=== PATIENT | female | born 1995 | race Caucasian/White ===

== ENCOUNTER 2018-01-02 21:52 | Emergency (ER) | payer OTHER ==
[2018-01-03] MEDS: SOD CHLORIDE 0.9% 1,000 ML IV (00:24)
[2018-01-03] MEDS: HYDROCODONE/APAP (5/325) TAB PO (00:25)
[2018-01-03 00:28] LABS: ADD MAN DIFF? NO
[2018-01-03 00:31] LABS: WHITE BLOOD COUNT 13.5 10^3/ul (4.8-10.8)
[2018-01-03 00:31] LABS: BASOPHILS % 0.3 % (0.0-2.0); EOSINOPHILS # 0.1 10^3/ul (0.0-0.5); EOSINOPHILS % 0.8 % (0.0-7.0); HEMATOCRIT 37.5 % (37.0-47.0); HEMOGLOBIN 12.7 g/dl (12.0-16.0); LYMPHOCYTES # 2.4 10^3/ul (0.8-2.9); MEAN CORPUSCULAR HEMOGLOBIN 29.5 pg (29.0-33.0); MEAN CORPUSCULAR HGB CONC 33.9 g/dl (32.0-37.0); MEAN CORPUSCULAR VOLUME 87.2 fl (82.0-101.0); MEAN PLATELET VOLUME 9.9 fl (7.4-10.4); MONOCYTE # 0.5 10^3/ul (0.3-0.9); MONOCYTES % 3.9 % (0.0-11.0); NEUTROPHIL # 10.3 10^3/ul (1.6-7.5); NEUTROPHILS % 76.6 % (39.0-77.0); PLATELET COUNT 223 10^3/UL (140-415); RED CELL DISTRIBUTION WIDTH 13.3 % (11.5-14.5)
[2018-01-03 03:01] LABS: UR COLOR RED (YELLOW)
[2018-01-03 03:02] LABS: ADD UMIC YES; UR ASCORBIC ACID NEGATIVE (NEGATIVE); UR BILIRUBIN (Dip) NEGATIVE (NEGATIVE); UR BLOOD (Dip) 3+ mg/dL (NEGATIVE); UR CLARITY CLOUDY (CLEAR); UR GLUCOSE (Dip) NEGATIVE (NEGATIVE); UR KETONES (Dip) NEGATIVE (NEGATIVE); UR LEUKOCYTE ESTERASE (Dip) 1+ Leu/ul (NEGATIVE); UR NITRITE (Dip) NEGATIVE (NEGATIVE); UR RBC > 182 /HPF (0-5); UR SPECIFIC GRAVITY (Dip) 1.016 (1.003-1.030); UR SQUAMOUS EPITHELIAL CELL FEW /HPF (FEW); UR TOTAL PROTEIN (Dip) 2+ mg/dl (NEGATIVE); UR UROBILINOGEN (Dip) NEGATIVE (NEGATIVE); UR WBC 44 /HPF (0-5)
== END 2018-01-03 03:34 | disposition home or self-care (01) ==
LOC: FTE 21:52
DX: O26.891 Other specified pregnancy related conditions, first trimester (principal); R10.2 Pelvic and perineal pain; O20.9 Hemorrhage in early pregnancy, unspecified; Z87.891 Personal history of nicotine dependence
CPT/HCPCS: 36415; 76801; 76817; 81001; 84702; 85025; 86900; 86901; 99285-25

== ENCOUNTER 2018-01-04 12:21 | Inpatient (IN) | payer OTHER ==
[2018-01-04] MEDS: ACETAMINOPHEN 325 MG TAB PO (14:55)
[2018-01-04] MEDS: SODIUM CHLORIDE 0.9% 1L BAG IV* (14:55)
[2018-01-04 15:00] LABS: ADD MAN DIFF? NO
[2018-01-04 15:03] LABS: WHITE BLOOD COUNT 13.1 10^3/ul (4.8-10.8)
[2018-01-04 15:03] LABS: ABNORMAL IP MESSAGE 1; BASOPHILS % 0.2 % (0.0-2.0); HEMATOCRIT 34.4 % (37.0-47.0); LYMPHOCYTES # 0.4 10^3/ul (0.8-2.9); LYMPHOCYTES % 3.3 % (15.0-51.0); MEAN CORPUSCULAR HEMOGLOBIN 29.9 pg (29.0-33.0); MEAN CORPUSCULAR HGB CONC 34.9 g/dl (32.0-37.0); MEAN CORPUSCULAR VOLUME 85.6 fl (82.0-101.0); MONOCYTE # 0.7 10^3/ul (0.3-0.9); NEUTROPHIL # 11.9 10^3/ul (1.6-7.5); NEUTROPHILS % 90.7 % (39.0-77.0); PLATELET COUNT 156 10^3/UL (140-415); RED BLOOD COUNT 4.02 10^6/ul (4.20-5.40); RED CELL DISTRIBUTION WIDTH 12.8 % (11.5-14.5)
[2018-01-04 15:13] LABS: POSITIVE DIFF @See below
[2018-01-04 15:27] LABS: INR 1.17; PROTIME 15.1 Sec (11.9-14.9); PT RATIO 1.2
[2018-01-04 15:28] LABS: PARTIAL THROMBOPLASTIN TIME 29.9 Sec (25.0-35.0)
[2018-01-04 15:31] LABS: ALANINE AMINOTRANSFERASE 47 IU/L (13-69); ALBUMIN 4.8 g/dl (3.3-4.9); ALBUMIN/GLOBULIN RATIO 1.45; ALKALINE PHOSPHATASE 62 IU/L (42-121); ANION GAP 21 (8-16); ASPARTATE AMINO TRANSFERASE 56 IU/L (15-46); BILIRUBIN,INDIRECT 0.6 mg/dl (0-1.1); BILIRUBIN,TOTAL 0.6 mg/dl (0.2-1.3); BLOOD UREA NITROGEN 6 mg/dl (7-20); CARBON DIOXIDE 23 mmol/L (21-31); CHLORIDE 95 mmol/L (97-110); GLUCOSE 135 mg/dl (70-220); LIPASE 19 U/L (23-300); POTASSIUM 3.7 mmol/L (3.5-5.1); SODIUM 135 mmol/L (135-144); TOTAL PROTEIN 8.1 g/dl (6.1-8.1)
[2018-01-04 15:34] LABS: LACTIC ACID 2.1 mmol/L (0.5-2.0)
[2018-01-04 15:42] LABS: TROPONIN-I < 0.012 ng/ml (0.00-0.12)
[2018-01-04] MEDS: PIPER-TAZO 3.375 GM IV (PMX) 100 ML IVPB ×2 (16:13→22:03)
[2018-01-04 16:22] LABS: ADD UMIC YES; UR ASCORBIC ACID NEGATIVE (NEGATIVE); UR BACTERIA FEW /HPF (NONE SEEN); UR BILIRUBIN (Dip) NEGATIVE (NEGATIVE); UR BLOOD (Dip) 2+ mg/dL (NEGATIVE); UR CLARITY CLEAR (CLEAR); UR COLOR RED (YELLOW); UR GLUCOSE (Dip) 1+ mg/dL (NEGATIVE); UR KETONES (Dip) NEGATIVE (NEGATIVE); UR LEUKOCYTE ESTERASE (Dip) 2+ Leu/ul (NEGATIVE); UR NITRITE (Dip) NEGATIVE (NEGATIVE); UR RBC > 182 /HPF (0-5); UR SPECIFIC GRAVITY (Dip) 1.005 (1.003-1.030); UR SQUAMOUS EPITHELIAL CELL FEW /HPF (FEW); UR TOTAL PROTEIN (Dip) 2+ mg/dl (NEGATIVE); UR UROBILINOGEN (Dip) NEGATIVE (NEGATIVE); UR WBC 78 /HPF (0-5)
[2018-01-04] MEDS ORDERED: ACETAMINOPHEN 325 MG TAB PO (16:30)
[2018-01-04] MEDS ORDERED: BISACODYL 10 MG SUPP PR (16:30)
[2018-01-04] MEDS ORDERED: NACL 0.9% 3 ML SYG IV (16:30)
[2018-01-04] MEDS ORDERED: HYDROCODONE/APAP (5/325) TAB PO (16:30)
[2018-01-04] MEDS ORDERED: SOD CHLORIDE 0.9% 1,000 ML IV (16:30)
[2018-01-04] MEDS ORDERED: morphine 2 MG INJ IV (16:30)
[2018-01-04] MEDS ORDERED: BISACODYL (EC) 5 MG TAB PO (16:30)
[2018-01-04] MEDS ORDERED: MAGNESIUM HYDROXIDE 30ML CUP PO (16:30)
[2018-01-04] MEDS ORDERED: DOCUSATE SODIUM 100 MG CAP PO (16:30)
[2018-01-04] MEDS: VANCOMYCIN 1 GM (PMX) 250 ML IVPB (17:29)
[2018-01-04] MEDS ORDERED: ENOXAPARIN 40 MG/0.4 ML SYG SC (18:00)
[2018-01-04 18:38] LABS: LACTIC ACID 1.1 mmol/L (0.5-2.0)
[2018-01-04] MEDS ORDERED: CEFTRIAXONE 1 GM/50 ML (PMX) 50 ML IVPB (21:00)
[2018-01-04] MEDS: ONDANSETRON 4 MG INJ IV (21:25)
[2018-01-05] MEDS: PIPER-TAZO 3.375 GM IV (PMX) 100 ML IVPB ×3 (05:42→22:52)
[2018-01-05 05:47] LABS: ADD MAN DIFF? NO
[2018-01-05 05:51] LABS: ABNORMAL IP MESSAGE 1; BASOPHILS % 0.4 % (0.0-2.0); HEMATOCRIT 25.9 % (37.0-47.0); HEMOGLOBIN 8.9 g/dl (12.0-16.0); LYMPHOCYTES # 0.6 10^3/ul (0.8-2.9); LYMPHOCYTES % 12.3 % (15.0-51.0); MEAN CORPUSCULAR HGB CONC 34.4 g/dl (32.0-37.0); MEAN CORPUSCULAR VOLUME 87.2 fl (82.0-101.0); MEAN PLATELET VOLUME 10.5 fl (7.4-10.4); MONOCYTE # 0.2 10^3/ul (0.3-0.9); MONOCYTES % 4.8 % (0.0-11.0); NEUTROPHIL # 3.9 10^3/ul (1.6-7.5); NEUTROPHILS % 81.2 % (39.0-77.0); PLATELET COUNT 122 10^3/UL (140-415); RED BLOOD COUNT 2.97 10^6/ul (4.20-5.40); RED CELL DISTRIBUTION WIDTH 13.1 % (11.5-14.5)
[2018-01-05 05:51] LABS: WHITE BLOOD COUNT 4.8 10^3/ul (4.8-10.8)
[2018-01-05 06:01] LABS: POSITIVE DIFF @See below
[2018-01-05 06:31] LABS: ANION GAP 14 (8-16); BLOOD UREA NITROGEN 5 mg/dl (7-20); CALCIUM 7.7 mg/dl (8.4-10.2); CARBON DIOXIDE 25 mmol/L (21-31); CHLORIDE 106 mmol/L (97-110); CREATININE 0.59 mg/dl (0.44-1.00); GLUCOSE 97 mg/dl (70-220); MAGNESIUM 1.8 mg/dl (1.7-2.5); PHOSPHORUS 2.8 mg/dl (2.5-4.9); POTASSIUM 3.9 mmol/L (3.5-5.1); SODIUM 141 mmol/L (135-144)
[2018-01-05 06:33] LABS: T3 UPTAKE 35.8 % (23.5-40.5); T4 (THYROXINE) 5.6 ug/dl (5.5-11.0)
[2018-01-05] MEDS: LACTATED RINGER'S 1,000 ML IV ×3 (08:42→12:18)
[2018-01-05] MEDS ORDERED: CEFAZOLIN 1 GM INJ (09:38)
[2018-01-05] MEDS ORDERED: GLYCOPYRROLATE 0.4 MG INJ (09:38)
[2018-01-05] MEDS ORDERED: PROPOFOL 20 ML (09:38)
[2018-01-05] MEDS ORDERED: ROCURONIUM 50 MG INJ (09:38)
[2018-01-05] MEDS ORDERED: NEOSTIGMINE 3 MG/3 ML SYRINGE (09:38)
[2018-01-05] MEDS ORDERED: MIDAZOLAM 1 MG/ML 2 ML INJ (09:39)
[2018-01-05] MEDS ORDERED: FENTAnyl 50 MCG/ML VIAL ×2 (09:39→10:34)
[2018-01-05] MEDS ORDERED: ONDANSETRON 4 MG INJ (09:40)
[2018-01-05] MEDS ORDERED: DEXAMETHASONE 4 MG/ML 1 ML INJ (09:40)
[2018-01-05] MEDS ORDERED: SUGAMMADEX SODIUM 200 MG/2 ML VIAL IV (10:03)
[2018-01-05] MEDS ORDERED: MIDAZOLAM 1 MG/ML 2 ML INJ IV (10:30)
[2018-01-05] MEDS ORDERED: NACL 0.9% 3 ML SYG IV (10:30)
[2018-01-05] MEDS ORDERED: FENTAnyl 50 MCG/ML VIAL IV ×2 (10:30)
[2018-01-05] MEDS ORDERED: IBUPROFEN 600 MG TAB PO (10:30)
[2018-01-05] MEDS ORDERED: hydrALAzine 20 MG INJ IV (10:30)
[2018-01-05] MEDS ORDERED: DOCUSATE SODIUM 100 MG CAP PO (10:30)
[2018-01-05] MEDS ORDERED: ONDANSETRON 4 MG INJ IV ×2 (10:30)
[2018-01-05] MEDS ORDERED: HYDROmorphONE (0.2 MG/ML) 10ML SYG IV ×3 (10:30)
[2018-01-05] MEDS ORDERED: EPHEDrine SULFATE 50 MG/5 ML SYG IV (10:30)
[2018-01-05] MEDS ORDERED: MEPERIDINE 25 MG INJ IV (10:30)
[2018-01-05] MEDS ORDERED: IPRATROPIUM (NEB) 0.5 MG/2.5 ML AMP HHN (10:30)
[2018-01-05] MEDS ORDERED: ALBUTEROL 0.083% (NEB) 2.5 MG/3 ML AMP HHN (10:30)
[2018-01-05] MEDS ORDERED: TRIMETHOBENZAMIDE 100 MG/ML VIAL IM (10:30)
[2018-01-05] MEDS ORDERED: OXYCODONE/ACETAMINOPHEN (5/325) TAB PO ×2 (10:30)
[2018-01-05] MEDS ORDERED: LABETALOL HCL 20MG INJ IV (10:30)
[2018-01-05] MEDS ORDERED: DIPHENHYDRAMINE 50 MG INJ IV (10:30)
[2018-01-05] MEDS: FENTAnyl 50 MCG/ML VIAL IV (10:39)
[2018-01-05] MEDS ORDERED: VANCOMYCIN IV PER PHARMACY XX (11:00)
[2018-01-05] MEDS ORDERED: CEPASTAT LOZENGE (12:16)
[2018-01-05] MEDS: CEPASTAT LOZENGE MT (12:19)
[2018-01-05] MEDS: VANCOMYCIN 1 GM 250 ML IVPB ×2 (12:19→20:52)
[2018-01-06] MEDS: ZOLPIDEM 5 MG TAB PO (01:59)
[2018-01-06] MEDS: LACTATED RINGER'S 1,000 ML IV ×2 (03:14→12:41)
[2018-01-06] MEDS: VANCOMYCIN 1 GM 250 ML IVPB ×2 (04:07→12:41)
[2018-01-06 05:15] LABS: ADD MAN DIFF? NO
[2018-01-06 05:24] LABS: WHITE BLOOD COUNT 5.6 10^3/ul (4.8-10.8)
[2018-01-06 05:24] LABS: BASOPHILS % 0.2 % (0.0-2.0); EOSINOPHILS % 0.2 % (0.0-7.0); HEMATOCRIT 23.8 % (37.0-47.0); HEMOGLOBIN 8.1 g/dl (12.0-16.0); LYMPHOCYTES # 1.4 10^3/ul (0.8-2.9); LYMPHOCYTES % 24.9 % (15.0-51.0); MEAN CORPUSCULAR HEMOGLOBIN 29.5 pg (29.0-33.0); MEAN CORPUSCULAR VOLUME 86.5 fl (82.0-101.0); MEAN PLATELET VOLUME 10.5 fl (7.4-10.4); MONOCYTE # 0.6 10^3/ul (0.3-0.9); MONOCYTES % 11.3 % (0.0-11.0); NEUTROPHIL # 3.5 10^3/ul (1.6-7.5); NEUTROPHILS % 62.5 % (39.0-77.0); PLATELET COUNT 126 10^3/UL (140-415); RED BLOOD COUNT 2.75 10^6/ul (4.20-5.40); RED CELL DISTRIBUTION WIDTH 13.2 % (11.5-14.5)
[2018-01-06 05:35] LABS: ANION GAP 11 (8-16); BLOOD UREA NITROGEN 3 mg/dl (7-20); CALCIUM 8.1 mg/dl (8.4-10.2); CARBON DIOXIDE 28 mmol/L (21-31); CHLORIDE 108 mmol/L (97-110); CREATININE 0.56 mg/dl (0.44-1.00); GLUCOSE 106 mg/dl (70-220); MAGNESIUM 1.8 mg/dl (1.7-2.5); PHOSPHORUS 2.8 mg/dl (2.5-4.9); POTASSIUM 3.5 mmol/L (3.5-5.1); SODIUM 143 mmol/L (135-144)
[2018-01-06] MEDS: PIPER-TAZO 3.375 GM IV (PMX) 100 ML IVPB (06:18)
[2018-01-06 09:50] LABS: ANISOCYTOSIS 1+ (0-0); BAND NEUTROPHILS #M 0.1 10^3/ul (0.0-0.6); BAND NEUTROPHILS % (M) 2 % (0-4); BASOPHILS % (M) 1 % (0-2); EOSINOPHILS % (M) 1 % (0-7); ERYTHROBLAST% (NRBC) (M) 1 % (0-0); GIANT THROMBO% (M) 6 % (0-0); LYMPHOCYTES #M 0.9 10^3/ul (0.8-2.9); LYMPHOCYTES % (M) 17 % (15-51); MONOCYTE #M 0.2 10^3/ul (0.3-0.9); MONOCYTES % (M) 5 % (0-11); MYELOCYTES % (M) 1 % (0-0); PLATELET ESTIMATE DECREASED; POLYCHROMASIA 1+ (0-0); SEG NEUT #M 4.1 10^3/ul (1.6-7.5); SEGMENTED NEUTROPHILS (M) % 73 % (39-77)
[2018-01-06] MEDS: LORAZEPAM 1 MG TAB PO ×2 (09:53→23:33)
[2018-01-06 12:14] LABS: VANCOMYCIN,TROUGH 10.1 ug/ml (10.0-20.0)
[2018-01-06] MEDS: HYDROCODONE/APAP (5/325) TAB PO (18:31)
[2018-01-06] MEDS: VANCOMYCIN 1.25 GM in SOD CHLORIDE 0.9% 250 ML IVPB (20:05)
[2018-01-07] MEDS: VANCOMYCIN 1.25 GM in SOD CHLORIDE 0.9% 250 ML IVPB (04:30)
[2018-01-07 06:12] LABS: ADD MAN DIFF? NO
[2018-01-07 06:15] LABS: WHITE BLOOD COUNT 5.2 10^3/ul (4.8-10.8)
[2018-01-07 06:15] LABS: BASOPHILS % 0.4 % (0.0-2.0); EOSINOPHILS # 0.1 10^3/ul (0.0-0.5); EOSINOPHILS % 2.1 % (0.0-7.0); HEMATOCRIT 24.5 % (37.0-47.0); HEMOGLOBIN 8.3 g/dl (12.0-16.0); LYMPHOCYTES # 2.1 10^3/ul (0.8-2.9); LYMPHOCYTES % 40.7 % (15.0-51.0); MEAN CORPUSCULAR HEMOGLOBIN 29.5 pg (29.0-33.0); MEAN CORPUSCULAR HGB CONC 33.9 g/dl (32.0-37.0); MEAN CORPUSCULAR VOLUME 87.2 fl (82.0-101.0); MEAN PLATELET VOLUME 10.7 fl (7.4-10.4); MONOCYTE # 0.5 10^3/ul (0.3-0.9); MONOCYTES % 8.9 % (0.0-11.0); NEUTROPHIL # 2.4 10^3/ul (1.6-7.5); NEUTROPHILS % 46.9 % (39.0-77.0); PLATELET COUNT 157 10^3/UL (140-415); RED BLOOD COUNT 2.81 10^6/ul (4.20-5.40); RED CELL DISTRIBUTION WIDTH 13.1 % (11.5-14.5)
== END 2018-01-07 15:27 | disposition left against medical advice (07) | DRG 770 ==
LOC: E/R 12:21 → PP2 16:12
PROC: 10D17ZZ Extraction of Products of Conception, Retained, Via Natural or Artificial Opening (ICD-10-PCS; principal; 2018-01-05 09:30)
DX: O03.37 Sepsis following incomplete spontaneous abortion (principal); A41.9 Sepsis, unspecified organism; F12.90 Cannabis use, unspecified, uncomplicated; O03.0 Genital tract and pelvic infection following incomplete spontaneous abortion; N71.9 Inflammatory disease of uterus, unspecified; Z87.891 Personal history of nicotine dependence
CPT/HCPCS: 36415; 71045; 76801; 80048; 80053; 80202; 81001; 83605; 83690; 83735; 84100; 84436; 84479; 84484; 84702; 85025; 85610; 85730; 86850; 86900; 86901; 87040; 87086; 88305; 93005; 96374; 96376; 99291-25